=== PATIENT | female | born 1965 | race Two or more races ===

== ENCOUNTER → 2018-11-25 | Emergency (ER) | payer MEDICAID ==
[~2018-11-25] MED LIST: CALCTAB62 PO; CYAN100023 PO
== END | disposition left against medical advice (07) ==
LOC: ER 00:35
DX: S30.871A Other superficial bite of abdominal wall, initial encounter (principal); Z53.21 Procedure and treatment not carried out due to patient leaving prior to being seen by health care provider; W55.01XA Bitten by cat, initial encounter; Y93.89 Activity, other specified; Y99.8 Other external cause status; Y92.89 Other specified places as the place of occurrence of the external cause